=== PATIENT | female | born 1955 | race Caucasian/White ===

== ENCOUNTER 2020-12-09 11:09 | Outpatient (CLI) | payer BC, SELFPAY ==
--- NOTE | 2020-12-09 11:00 | DI.RAD_ITS ---
EXAM: XR SHOULDER RT COMPLETE 2+V CLINICAL HISTORY: right shoulder paion TECHNIQUE: COMPARISON: No exams were available for comparison FINDINGS: Two views were obtained. There appears to been a previous resection of the distal clavicle. There a re mild marginal osteophytes of the humerus glenoid. Cartilaginous joint space of glenohumeral joint appears grossly well maintained. No other significant bony or soft tissue abnormality seen. IMPRESSION: RADIATION DOSE DELIVERED: Total DLP
== END 2020-12-09 11:10 | disposition home or self-care (01) ==
LOC: DIORS 11:10
PROVIDERS: PCP Family Medicine; Referring Provider Family Medicine; Visit Provider Student in an Organized Health Care Education/Training Program
DX: M25.511 Pain in right shoulder (principal)
CPT/HCPCS: 73030

== ENCOUNTER 2021-12-09 10:55 | Outpatient (REF) | payer BC, SELFPAY ==
--- NOTE | 2021-12-09 | NASSEP_PTH ---
PATIENT: Betsy Castro LOC: [facility] U#:[id number] AGE/SX: 66/F ROOM: RE12/09/[address]: Desmond Ivy MD : 1955 BED: DIS: 12/09/2021 SPEC #: [id number] RECD: 12/09/21 18:02 STATUS: KEVIN REQ #: [id number] GABY: 12/09/21 00:[address]: Desmond Ivy DEPT: Surgical Specimen RECD BY: Valerie Brooks ENTERED: 12/09/21 18:02 SP TYPE: NASSEP OTHR DR: Jessy Donato Tissues: 1 - NASAL SEPTUM Procedures: GROSS AND MICRO LEVEL 4 SPECIAL STAIN 1 Comments: [id number]
== END 2021-12-09 10:56 | disposition home or self-care (01) ==
LOC: LBN 10:55
PROVIDERS: PCP Family Medicine; Visit Provider Otolaryngology
DX: J34.89 Other specified disorders of nose and nasal sinuses (principal)
CPT/HCPCS: 88300; 88305; 88312

== ENCOUNTER 2022-01-27 15:17 | Outpatient (REF) | payer BC, SELFPAY ==
--- NOTE | 2022-01-27 14:10 | SKI_PTH ---
PATIENT: Betsy Castro LOC: [facility] #:[id number] AGE/SX: 66/F ROOM: RE01/27/[address]: Desmond Ivy MD : 1955 BED: DIS: 01/27/2022 SPEC #: [id number] RECD: 01/27/22 15:50 STATUS: KEVIN REQ #: [id number] GABY: 01/27/22 14:[address]: Desmond Ivy DEPT: Surgical Specimen RECD BY: Maria Isabel Whatley ENTERED: 01/27/22 15:52 SP TYPE: SKI OTHR DR: Jessy Donato Tissues: 1 - SKIN BIOPSY(SHAVE/PUNCH) Procedures: SKIN LEVEL 4 Comments: [id number]
== END 2022-01-27 15:18 | disposition home or self-care (01) ==
LOC: LBN 15:17
PROVIDERS: PCP Family Medicine; Visit Provider Otolaryngology
DX: C44.319 Basal cell carcinoma of skin of other parts of face (principal)
CPT/HCPCS: 88305

== ENCOUNTER 2022-01-27 18:27 | Outpatient (REF) | payer BC, SELFPAY | END 2022-01-27 18:28 | disposition home or self-care (01) | LOC: LBN 18:27 | PROVIDERS: PCP Family Medicine; Visit Provider Otolaryngology ==

== ENCOUNTER 2025-07-01 14:51 | Outpatient (REF) | payer BC, SELFPAY ==
--- NOTE | 2025-07-01 14:22 | SKI_PTH ---
PATIENT: Betsy Castro LOC: [facility] #:[id number] AGE/SX: 70/F ROOM: RE07/01/[address]: Desmond Ivy MD : 1955 BED: DIS: 07/01/2025 SPEC #: [id number] RECD: 07/01/25 18:49 STATUS: KEVIN REQ #: [id number] GABY: 07/01/25 14:[address]: Desmond Ivy DEPT: Surgical Specimen RECD BY: Valerie Brooks ENTERED: 07/01/25 18:49 SP TYPE: DEONTE DIEZ DR: Tessa Forrest Tissues: 1 - SKIN BIOPSY(SHAVE/PUNCH) Procedures: SKIN LEVEL 4 Comments: [id number]
== END 2025-07-01 14:52 | disposition home or self-care (01) ==
LOC: LBN 14:51
PROVIDERS: PCP Registered Nurse; Visit Provider Otolaryngology
DX: H61.032 Chondritis of left external ear (principal)
CPT/HCPCS: 88305